=== PATIENT | male | born 1980 | race Caucasian/White ===

== ENCOUNTER 2023-11-30 09:42 | Outpatient (CLI) | payer BC, SELFPAY ==
--- NOTE | 2023-11-30 10:08 | ECG_ITS ---
APPROVED REPORT Exam: Resting ECG HR:102 bpm ECG Measurements Heart Rate 102 AXES IN 129 P 86 QRSd 103 QRS 85 QT 358 T -29 QTc 417 Conclusion SINUS TACHYCARDIA INCOMPLETE RIGHT BUNDLE BRANCH BLOCK [90+ ms QRS DURATION, TERMINAL R IN V1/V2, 40+ ms S IN I/aVL/V4/V5/V6] ST DEVIATION AND MODERATE T-WAVE ABNORMALITY, CONSIDER ANTERIOR ISCHEMIA [-0.1+ mV T-WAVE IN V3/V4] ABNORMAL ECG UNCONFIRMED REPORT Electronically signed by : Kvng Melchor MD 11/30/2023 20:07:03
[2023-11-30 10:42] LABS: Basophils % 0.2 % (0.1-2.0); Eosinophils # 0.2 K/mm3 (0.0-0.4); Eosinophils % 3.1 % (0.1-12.0); Hematocrit 49.3 % (42.0-52.0); Hemoglobin 16.5 g/dL (14.1-18.0); Lymphocytes # 1.5 K/mm3 (0.7-4.5); Lymphocytes % 31.4 % (10-50); Mean Corpuscular HGB Conc 33.6 g/dL (31.8-35.4); Mean Corpuscular Hemoglobin 29.5 pg (27.0-31.2); Mean Corpuscular Volume 87.9 fl (80-94); Mean Platelet Volume 8.1 fl (7.4-10.4); Monocytes # 0.3 K/mm3 (0.1-1.0); Monocytes % 6.2 % (1.7-9.3); Neutrophils # 2.9 K/mm3 (1.8-7.8); Neutrophils % 59.2 % (37.0-80.0); Platelet Count 260 K/mm3 (142-424); Red Blood Count 5.61 M/mm3 (4.60-6.20); Red Cell Distribution Width 13.5 % (11.5-17.5); White Blood Count 4.9 K/mm3 (4.8-10.8)
--- NOTE | 2023-11-30 10:42 | XR_ITS ---
FINAL REPORT CLINICAL HISTORY: Shortness of breath, Dry cough/drainage. Dizziness after coughing. COMPARISON: None FINDINGS: Two views of the chest were obtained. The heart size and pulmonary vascularity are within normal limits. The mediastinum is normal. No acute pulmonary abnormality is identified. There is no pneumothorax. The bony thorax is intact. IMPRESSION: No active cardiopulmonary disease. Reviewed, Interpreted and Dictated by Osvaldo De Santiago III, MD Transcribed by Opal Fernandez Authenticated and [facility]
[2023-11-30 10:45] LABS: Blood Urea Nitrogen 14 mg/dl (9-20); Calcium 8.5 mg/dl (8.4-10.2); Carbon Dioxide 28 mmol/L (22.0-30.0); Chloride 104 mmol/L (98-107); Estimated Glomerular Filt Rate 61 ml/min (>60); GFR (African American) 74 ML/MIN (>60); Glucose 114 mg/dl (74-100); Sodium 139 mmol/L (136-145)
== END 2023-11-30 23:59 ==
PROVIDERS: Visit Provider Orthopaedic Surgery Sports Medicine
DX: Z01.818 Encounter for other preprocedural examination (principal); R73.09 Other abnormal glucose; Z87.898 Personal history of other specified conditions
CPT/HCPCS: 36415; 71046; 80048; 83036; 85025; 93005

== ENCOUNTER 2024-04-25 12:57 | Emergency (ER) | payer BC, SELFPAY ==
[2024-04-25 13:05] VITALS: BP 141/53; PULSE 99; RESP 20; TEMP 36.7; O2SAT 98; BMI 27.2
--- NOTE | 2024-04-25 13:17 | ED_ITS ---
Discharge Plan Disposition Patient Disposition: Home, Self-Care Condition: Good Prescriptions Prescriptions: New sulfamethoxazole-trimethoprim [Bactrim DS] 800-160 mg Tablet 1 tab PO BID Qty: 20 0RF cephalexin 500 mg capsule 500 mg PO QID Qty: 40 0RF mupirocin 2 % ointment 1 applic topical TID 7 Days Qty: 15 0RF No Action escitalopram oxalate 20 mg tablet 20 mg PO DAILY Patient Comments: TAKE 1 TABLET BY MOUTH DAILY lisdexamfetamine [Vyvanse] 70 mg capsule 70 mg PO DAILY Patient Comments: TAKE 1 CAPSULE BY MOUTH ONCE DAILY IN THE MORNING Referrals Follow up/Referrals: Provider,Referral, [Primary Care Provider] - See instructions Activity Restrictions/Add. Instructions Additional Instructions/Restrictions: Keep the wound clean and dry. Watch the wound for signs of worsening infection, such as worsening redness, swelling, drainage, fever. etc. Take tylenol or ibuprofen for pain. Follow up with your regular doctor. Follow up with your surgeon. Try to follow up there within the next 48 hours to let them recheck to wound. We took a culture of the wound drainage. This will take 3 days to complete. It will tell which antibiotics will best treat your infection. GO TO THE ER FOR ANY WORSENING SYMPTOMS OR CONCERNS. Clinical Impressions Clinical Impression: Superficial postoperative wound infection Instructions Patient Instructions: DI for Wound Infection, Cephalexin, Mupirocin Discharge ED Provider: Nestor Huynh [facility] General Stated complaint: pain in arm Mode of Arrival: Ambulatory Source of Information: Patient Limitations: No Limitations Time Seen by Provider: 04/25/24 13:17 Description of Symptoms (Recalled from Triage Doc. by RN): PATIENT REPORTS HAVING RIGHT SHOULDER REPLACEMENT SURGERY APPROX 5 WEEKS AGO AND STATES ONE OF HIS SCARS HAS OPENED UP SOME AND HAS SOME REDNESS AROUND IT HEENT Symptoms (Recalled from RN notes): No Resp Symptoms (Recalled from RN notes): No Skin Symptoms (Recalled from RN notes): Yes MS Symptoms (Recalled from RN notes): No Functional Status (Recalled from RN notes): WNL History of Present Illness Provider Complaint: He states that 5 weeks ago he had right shoulder surgery in [place]. His shoulder has been doing good, but over the past 3 days he has had a small open area develop on the top part of his incision. There has been some clear drainage also. He denies any worsening shoulder pain and fever/chills. Related Data Home Medications Medication Instructions Recorded Confirmed escitalopram oxalate 20 mg tablet 20 mg PO DAILY 04/25/24 04/25/24 lisdexamfetamine 70 mg capsule 70 mg PO DAILY 04/25/24 04/25/24 (Vyvanse) Previous Rx's Medication Instructions Recorded cephalexin 500 mg capsule 500 mg PO QID #40 caps 04/25/24 mupirocin 2 % topical ointment 1 applic topical TID 7 days #15 04/25/24 grams sulfamethoxazole 800 1 tab PO BID #20 tabs 04/25/24 mg-trimethoprim 160 mg tablet (Bactrim DS) Allergies Allergy/AdvReac Type Severity Reaction Status Date / Time No Known Allergies Allergy Verified 04/25/24 13:12 Worker's Comp Is this a Worker's Comp case?: No [facility] Disclaimer: The information contained in this section may have been updated after the patient was seen, as this information can be updated by other users. Surgical History (Updated 04/25/24 @ 13:13 by Nora Ardon RN) History of right shoulder replacement Social History Smoking Status: Never smoker alcohol intake: never current occupational status: employed Travel in the last 8 weeks: None ROS Obtained: Yes All systems reviewed & no additional complaints except as documented Constitutional Constitutional: Denies chills and Denies fever(s) Eyes Eyes: Denies eye discharge ENT Ears, Nose, Mouth, and Throat: Denies dizziness, Denies otalgia and Denies sore throat Cardiovascular Cardiovascular: Denies chest pain Respiratory Respiratory: Denies shortness of breath, Denies chest congestion, Denies cough, Denies stridor and Denies wheezing Gastrointestinal Gastrointestingal: Denies nausea or vomiting Musculoskeletal Musculoskeletal: Reports system reviewed and no additional complaints, except as documented and Denies arthralgias Integumentary/Breasts Skin/Breast: Reports as per HPI and Denies redness Neurologic Neurologic: Denies dizziness and Denies paresthesias Allergic/Immunologic Allergic/Immunologic: Denies wheezing Physical Exam General General appearance: alert and in no apparent distress Head Head exam: atraumatic, normocephalic and normal inspection Eye Eye exam: Present normal appearance, PERRL and EOMI ENT ENT exam: Present normal exam, normal oropharynx, mucous membranes moist, TM's normal bilaterally and normal external ear exam Neck Neck exam: Present normal inspection, full ROM and trachea midline; Absent meningismus or lymphadenopathy Chest Chest inspection: Present normal inspection and symmetric chest wall rise; Absent tenderness Respiratory Respiratory exam: Present normal lung sounds bilaterally; Absent respiratory distress Cardiovascular Cardiovascular exam: Present regular rate and normal rhythm; Absent JVD Abdominal Exam Abdominal exam: Present soft and normal bowel sounds; Absent distention, tenderness or guarding Extremities Exam Extremities exam: Present normal inspection, full ROM and normal capillary refill; Absent calf tenderness Back Exam Back exam: Present normal inspection; Absent tenderness Neurological Exam Neurological exam: Present alert and oriented X3 Psychiatric Psychiatric exam: Present normal affect and normal mood Skin Skin exam: Present other (there is a small open area on the top part of his right shoulder incision. the rest of the incision appears well healed. there is no surrounding redness or edema. there is a small amount of clear drainage from the open area of the wound. ) Lymphatic Lymphatic Findings: no adenopathy Medical Decision Making Medical Records Medical records reviewed: No I reviewed the patient's medical records. [place] Inquiry Pt receiving controlled substance: No Vital Signs: 04/25/24 13:05 Temperature 98.0 F Temperature Source Oral Pulse Rate [Left Brachial] 99 H Respiratory Rate 20 Blood Pressure [Left Arm] 141/53 H Blood Pressure Mean [Left Arm] 82 Blood Pressure Source [Left Arm] Automatic Cuff Blood Pressure Position [Left Arm] Sitting 02 Sat by Pulse Oximetry 98 Oxygen Delivery Method Room Air
[2024-04-25 13:43] VITALS: BP 141/53; PULSE 99; RESP 20; TEMP 36.7; O2SAT 98
== END 2024-04-25 13:47 | disposition home or self-care (01) ==
PROVIDERS: Emergency Provider Nurse Practitioner Family
DX: T81.49XA Infection following a procedure, other surgical site, initial encounter (principal); Z96.611 Presence of right artificial shoulder joint
CPT/HCPCS: 87070; 87077; 87186; 87205; 99204; 99212; G0463

== ENCOUNTER 2024-07-29 08:16 | Emergency (ER) | payer BC, SELFPAY ==
[2024-07-29 08:30] VITALS: BP 121/90; PULSE 91; RESP 20; TEMP 36.8; O2SAT 100; BMI 25.0
--- NOTE | 2024-07-29 09:01 | EXP.UTC ---
Discharge Plan Disposition Patient Disposition: Home, Self-Care Condition: Good Prescriptions Prescriptions: New amoxicillin 500 mg capsule 500 mg PO TID 7 Days Qty: 21 0RF ciprofloxacin-dexamethasone 0.3-0.1 % drops,suspension 4 drp otic (ear) BID 7 Days Qty: 7.5 0RF Rx Instructions: apply drops in left ear as directed No Action escitalopram oxalate 20 mg tablet 20 mg PO DAILY Patient Comments: TAKE 1 TABLET BY MOUTH DAILY lisdexamfetamine [Vyvanse] 70 mg capsule 70 mg PO DAILY Patient Comments: TAKE 1 CAPSULE BY MOUTH DAILY IN THE MORNING Referrals Follow up/Referrals: Provider,Referral, MD [Referring] - See instructions Activity Restrictions/Add. Instructions Additional Instructions/Restrictions: Take medicatin as prescribed Use Ear drops as prescribed Follow up with your Family Doctor if no improvement or any worsening of symptoms Return if needed Straight to ER if any life threatening symptoms Clinical Impressions Clinical Impression: Otitis externa Instructions Patient Instructions: How to Instill Ear Drops, How to Use Ear Drops, DI for Otitis Externa Print Language Print Language: Citizen [place] Discharge ED Provider: Sydney Bright [facility] General Stated complaint: Pain and loss of hearing in L ear Mode of Arrival: Ambulatory Source of Information: Patient Limitations: No Limitations Time Seen by Provider: 07/29/24 09:01 Description of Symptoms (Recalled from Triage Doc. by RN): PATIENT C/O LEFT EAR PAIN WITH DECREASED HEARING THAT STARTED 2 DAYS AGO HEENT Symptoms (Recalled from RN notes): Yes Resp Symptoms (Recalled from RN notes): No Skin Symptoms (Recalled from RN notes): No MS Symptoms (Recalled from RN notes): No Functional Status (Recalled from RN notes): WNL History of Present Illness Provider Complaint: Patient states about 2 days ago he cleaned out his ears and then after that he has been having pain in his left ear, feeling like it is swollen and decreased States today it was still bothering him so he came in to get it checked Related Data Home Medications ?Medication ?Instructions ?Recorded ?Confirmed escitalopram oxalate 20 mg tablet 20 mg PO DAILY 04/25/24 07/29/24 lisdexamfetamine 70 mg capsule 70 mg PO DAILY 07/29/24 07/29/24 (Vyvanse) Previous Rx's ?Medication ?Instructions ?Recorded amoxicillin 500 mg capsule 500 mg PO TID 7 days #21 caps 07/29/24 ciprofloxacin 0.3 %-dexamethasone 4 drp otic (ear) BID 7 days #7.5 mL 07/29/24 0.1 % ear drops,suspension Allergies Allergy/AdvReac Type Severity Reaction Status Date / Time No Known Allergies Allergy Verified 04/25/24 13:12 Worker's Comp Is this a Worker's Comp case?: No [facility] Disclaimer: The information contained in this section may have been updated after the patient was seen, as this information can be updated by other users. Surgical History (Updated 04/25/24 @ 13:13 by Nora Ardon RN) History of right shoulder replacement Social History (Updated 04/25/24 @ 15:39 by Nestor Huynh APRN) Smoking Status: Never smoker alcohol intake: never current occupational status: employed Travel in the last 8 weeks: None ROS Obtained: Yes All systems reviewed & no additional complaints except as documented and Yes Systems reviewed as appropriate & no additional complaints except as documented Constitutional Constitutional: Reports system reviewed and no additional complaints, except as documented and Reports as per HPI ENT Ears, Nose, Mouth, and Throat: Reports system reviewed and no additional complaints, except as documented, Reports as per HPI and Reports otalgia Cardiovascular Cardiovascular: Reports system reviewed and no additional complaints, except as documented and Reports as per HPI Respiratory Respiratory: Reports system reviewed and no additional complaints, except as documented and Reports as per HPI Gastrointestinal Gastrointestingal: Reports system reviewed and no additional complaints, except as documented and as per HPI Physical Exam General General appearance: alert and in no apparent distress ENT ENT exam: Present mucous membranes moist Expanded ENT Exam External ear exam: Present pain with movement (left) and external tenderness (left) TM/Canal exam: Left TM: canal discharge and canal tenderness Respiratory Respiratory exam: Present normal lung sounds bilaterally; Absent respiratory distress or wheezes Cardiovascular Cardiovascular exam: Present regular rate, normal rhythm and normal heart sounds Neurological Exam Neurological exam: Present alert, oriented X3 and normal gait Medical Decision Making Bernard[place] Inquiry Pt receiving controlled substance: No [place] was queried for this patient: No Vital Signs: 07/29/24 08:30 Temperature 98.2 F Temperature Source Oral Pulse Rate [Left Brachial] 91 H Respiratory Rate 20 Blood Pressure [Left Arm] 121/90 Blood Pressure Mean [Left Arm] 100 Blood Pressure Source [Left Arm] Automatic Cuff Blood Pressure Position [Left Arm] Sitting 02 Sat by Pulse Oximetry 100 Oxygen Delivery Method Room Air
[2024-07-29 09:18] VITALS: BP 121/90; PULSE 91; RESP 20; TEMP 36.8; O2SAT 100
== END 2024-07-29 09:20 | disposition home or self-care (01) ==
PROVIDERS: Emergency Provider Nurse Practitioner; PCP Family Medicine
DX: H60.92 Unspecified otitis externa, left ear (principal); H92.02 Otalgia, left ear
CPT/HCPCS: 99212; 99214; G0463

== ENCOUNTER 2024-07-30 19:29 | Emergency (ER) | payer BC, SELFPAY ==
[2024-07-30 19:32] VITALS: BP 135/81; PULSE 92; RESP 18; TEMP 36.8; O2SAT 98; BMI 25.0
--- NOTE | 2024-07-30 19:53 | PC.NURSE ---
at bedside with US
--- NOTE | 2024-07-30 19:59 | ED_ITS ---
Discharge Plan Disposition Patient Disposition: Home, Self-Care Prescriptions Prescriptions: New Eliquis DVT-PE Treat 30D Start 5 mg (74 tabs) tablets,dose pack 5 mg PO BID Qty: 74 2RF No Action escitalopram oxalate 20 mg tablet 20 mg PO DAILY Patient Comments: TAKE 1 TABLET BY MOUTH DAILY lisdexamfetamine [Vyvanse] 70 mg capsule 70 mg PO DAILY Patient Comments: TAKE 1 CAPSULE BY MOUTH DAILY IN THE MORNING amoxicillin 500 mg capsule 500 mg PO TID 7 Days Qty: 21 0RF ciprofloxacin-dexamethasone 0.3-0.1 % drops,suspension 4 drp otic (ear) BID 7 Days Qty: 7.5 0RF Rx Instructions: apply drops in left ear as directed Referrals Follow up/Referrals: Nathaniel Fitzpatrick MD [Primary Care Provider] - See instructions Activity Restrictions/Add. Instructions Additional Instructions/Restrictions: Start apixaban (Eliquis, blood thinner) in the morning of 07/31. 10 mg twice daily for the first 7 days, then 5 mg twice daily for the remainder of time for total treatment 3 months. Call your family doctor to establish care for this visit to the emergency department and schedule follow-up within 48 hours to ensure improvement. If you have any worsening of your condition or any other concerning signs or symptoms, return to the emergency department or your primary care doctor for further evaluation. Clinical Impressions Clinical Impression: Acute deep vein thrombosis (DVT) of right upper extremity Print Language Print Language: Armenian Discharge ED Provider: Jonny Goff General Adult HPI General Chief complaint: Recheck/Abnormal Lab/Rx Stated complaint: ? Blood Clot in Right Arm Time Seen by Provider: 07/30/24 19:34 Mode of Arrival: Ambulatory Source of Information: Patient Limitations: No Limitations Description of Symptoms (Recalled from ER Triage Doc. by RN): Patient presents to ED after having shoulder surgery in February, patient thinks he has a blood clot to his right forearm. Patient reports it shown up 1 week ago. Patient rates pain 3/10, but states it is more annoying than pain. History of Present Illness HPI narrative: Please note that above description of symptoms, in this electronic medical record under categorization of recalled from ER triage doctor by RN are reflective of an initial nursing assessment, however, is not reflective of my full history and physical exam that was personally taken and clarified. Consequentially, this preceding description of symptoms, which may include the patient's categorized chief complaint in the EMR, do not reflect my personal clinical impression, and the ultimate description of history of present illness and patient stated complaints should be deferred to this section of the note. Unless stated otherwise or congruent with this section of the note, additional signs, symptoms, or incongruence should be interpreted as inaccurate with my clinical impression. Related Data Home Medications ?Medication ?Instructions ?Recorded ?Confirmed escitalopram oxalate 20 mg tablet 20 mg PO DAILY 04/25/24 07/29/24 lisdexamfetamine 70 mg capsule 70 mg PO DAILY 07/29/24 07/29/24 (Vyvanse) Previous Rx's ?Medication ?Instructions ?Recorded amoxicillin 500 mg capsule 500 mg PO TID 7 days #21 caps 07/29/24 ciprofloxacin 0.3 %-dexamethasone 4 drp otic (ear) BID 7 days #7.5 mL 07/29/24 0.1 % ear drops,suspension apixaban 5 mg (74 tabs) tablets in 5 mg PO BID #74 tabs 07/30/24 a dose pack (EliquOutlisten DVT-PE Treat 30D Start) Allergies Allergy/AdvReac Type Severity Reaction Status Date / Time No Known Allergies Allergy Verified 04/25/24 13:12 [facility] Disclaimer: The information contained in this section may have been updated after the patient was seen, as this information can be updated by other users. Surgical History (Updated 04/25/24 @ 13:13 by Nora Ardon RN) History of right shoulder replacement Social History (Updated 04/25/24 @ 15:39 by Nestor Huynh APRN) Smoking Status: Never smoker alcohol intake: never current occupational status: employed Travel in the last 8 weeks: None ROS Obtained: Yes All systems reviewed & no additional complaints except as documented Physical Exam General General appearance: alert Head Head exam: atraumatic and normocephalic Eye Eye exam: Present normal appearance, PERRL and EOMI Neck Neck exam: Present normal inspection, full ROM and trachea midline Respiratory Respiratory exam: Present normal lung sounds bilaterally; Absent respiratory distress, wheezes, stridor, accessory muscle use or prolonged expiratory phase Cardiovascular Cardiovascular exam: Present regular rate, normal rhythm and other (Pulses equal symmetric in upper and lower extremities) Abdominal Exam Abdominal exam: Present soft; Absent distention, tenderness or pulsatile mass Extremities Exam Extremities exam: Present other (Per MDM); Absent edema Neurological Exam Neurological exam: Present alert, oriented X3 and CN II-XII intact; Absent motor sensory deficit Skin Skin exam: Present warm and dry; Absent diaphoresis or erythema Medical Decision Making Medical Records Medical records reviewed: Yes I reviewed the patient's medical records. [place] Inquiry Pt receiving controlled substance: No [place] was queried for this patient: No Vital Signs: 07/30/24 19:32 Temperature 98.3 F Temperature Source Oral Pulse Rate [Left Brachial] 92 H Respiratory Rate 18 Blood Pressure [Left Arm] 135/81 Blood Pressure Mean [Left Arm] 99 Blood Pressure Source [Left Arm] Automatic Cuff Blood Pressure Position [Left Arm] Sitting 02 Sat by Pulse Oximetry 98 Oxygen Delivery Method Room Air Orders (Tests/Meds): ED MEDICATIONS Generic Name Dose Route Start Last Admin Trade Name Freq PRN Reason Stop Dose Admin Enoxaparin Sodium 85 mg 07/30/24 20:00 Enoxaparin 100mg/Ml Syringe 1 mg/kg (85 mg) 08/29/24 19:59 SQ Q12H MELVIN ORDERS Category Date Time Status POCUS Point of Care (ER Only) Stat Exams 07/30/24 19:39 Ordered Medical Decision Narrative: Is a 43-year-old male who is otherwise healthy recently status post right shoulder replacement in February 2024 who is presenting with palpable knot in right forearm. Patient states he has been going to physical therapy, has been doing well in terms of rehabilitation from his right upper extremity shoulder replacement. States that today, 07/30, he was feeling his right forearm just distal to the elbow and felt a knot. Is not tender. 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 States that his right upper extremity, right hand, right wrist, etc. have been a little more swollen, red out of baseline due to his shoulder surgery, he has had not had any other worse or appreciable swelling. No trauma to the area, etc. History obtained with patient. On arrival, patient very well-appearing. He is nontachycardic, normotensive, speaking full sentences. No complaints of palpitations, chest pain, etc. On physical exam he also has a palpable cord extending from medial aspect of mid right forearm and antecubital fossa before diving deeper and no longer palpable. Pulses are equal in upper extremities. Right upper extremity is erythematous and does appear congested with brisk capillary refill. Sensation decreased, patient states this is his baseline. Bedside [id number] DVT ultrasound with venous thrombosis extending from radial vein as well as ulnar vein up through antecubital fossa into basilic vein proximally. Does not appear to affect axillary vein. Because of this, patient was given 1 mg/kg of subcutaneous Lovenox. Because patient at baseline without signs or symptoms of clinical decompensation, deemed appropriate for discharge. Results were relayed to patient who voiced understanding and were agreeable to outpatient management and follow up. I discussed my clinical impression with patient and answered all questions. At this time, the evidence for any other entities in the differential is insufficient to warrant any further testing or ED observation. This was explained as well. Advisory was given that persistent or worsening symptoms require further evaluation. I confirmed the understanding of this discussion. Audiology Doctor disclaimer Much of this encounter note is an electronic deicer inspector pneumatic spoken language to printed text. Electronic deicer inspector pneumatic of the spoken language may permit errors. Although I have reviewed the note, some errors may still exist. Procedures Limited Ultrasound Indication:: Limited DVT ultrasound Indication: Limited compression ultrasonography of the right upper extremity was performed to evaluate for non-compressibility of the deep veins in the patient. The ultrasound was performed with the following indications, as noted in the H&P: Recent postop, swelling right upper extremity, palpable cord Identified structures: Right ulnar vein, radial vein, cephalic vein, basilic vein, axillary vein. Findings: Upper extremity: Right UV noncompressible Right RV: Noncompressible Right Cephalic vein: Compressed Right Basilic vein: noncompressibility Right Axillary vein: Good compressibility Impression: Deep venous thrombosis of right upper extremity and right ulnar, right radial veins extending into right basilic vein. Images were saved to permanent archive The study was technically adequate CPT: 50316-19-FR 01531-02-TC 18648-77 (complete bilateral study) This study was performed by me, and I personally interpreted all images/videos. Based on my clinical judgement, these images were adequate and did not necessitate further imaging Critical Care Critical Care Time Critical Care Time: No
[2024-07-30] MEDS: ENOXAPARIN 100MG/ML SYRINGE 85 MG SQ (20:00)
[2024-07-30 20:15] VITALS: BP 135/80; PULSE 82; RESP 18; TEMP 36.8; O2SAT 99
== END 2024-07-30 20:15 | disposition home or self-care (01) ==
PROVIDERS: Emergency Provider Emergency Medicine; PCP Family Medicine
DX: I82.621 Acute embolism and thrombosis of deep veins of right upper extremity (principal); I82.611 Acute embolism and thrombosis of superficial veins of right upper extremity
CPT/HCPCS: 96372; 99284; J1650

== ENCOUNTER 2024-08-06 11:18 | Outpatient (CLI) | payer OTHER, SELFPAY ==
--- NOTE | 2024-08-06 | CA_ITS ---
FINAL REPORT TECHNIQUE: Graded compression, spectral analysis and ultrasound images of the venous system of the right upper extremity were obtained. CLINICAL HISTORY: Post-op palpable chord in right forearm, + DVT eper ER-physician scan07/30/24 COMPARISON: None FINDINGS: There is visible thrombus with noncompressibility consistent with thrombosis in the cephalic vein. The remainder of the venous system is fully compressible and demonstrate no evidence of thrombosis. IMPRESSION: Cephalic vein thrombosis of the right upper extremity. Reviewed, Interpreted and Dictated by Chad Sanz MD Transcribed by Opal Fernandez Authenticated and [facility]
== END 2024-08-06 23:59 | disposition home or self-care (01) ==
LOC: RT 11:19
PROVIDERS: PCP Family Medicine; Visit Provider Orthopaedic Surgery Sports Medicine
DX: M25.511 Pain in right shoulder (principal); I82.621 Acute embolism and thrombosis of deep veins of right upper extremity; Z98.890 Other specified postprocedural states
CPT/HCPCS: 93971

== ENCOUNTER 2024-09-17 11:24 | Outpatient (CLI) | payer BC, SELFPAY ==
[2024-09-18 15:24] LABS: Endomysial IgA Antibody Negative (Negative)
[2024-09-18 16:55] LABS: Deamidated Gliadin Abs, IgA 3 units (0-19); Deamidated Gliadin Abs, IgG 2 units (0-19); Tissue Transglutaminase IgA Ab <2 U/mL (0-3); Tissue Transglutaminase IgG Ab 3 U/mL (0-5)
[2024-09-20 08:21] LABS: Reticulin IgA Antibody Negative titer (Neg:<1:2.5)
== END 2024-09-17 23:59 | disposition home or self-care (01) ==
LOC: LAB 11:25
PROVIDERS: PCP Family Medicine; Visit Provider Internal Medicine
DX: R14.0 Abdominal distension (gaseous) (principal); R19.4 Change in bowel habit
CPT/HCPCS: 36415; 83516; 86255; 86256

== ENCOUNTER 2024-11-07 15:00 | Outpatient (RCR) | payer OTHER, SELFPAY | END 2024-11-07 23:59 | disposition home or self-care (01) | LOC: OT 15:00 | PROVIDERS: Visit Provider Orthopaedic Surgery Sports Medicine | DX: M25.512 Pain in left shoulder (principal); Z47.1 Aftercare following joint replacement surgery | CPT/HCPCS: 97010; 97014; 97110; 97140; 97164; 97166; 97168; G0283 ==

== ENCOUNTER 2025-05-26 12:50 | Outpatient (CLI) | payer BC, SELFPAY ==
--- OUTSIDE RECORDS SUMMARY | 2025-05-26 12:55 | XMS_ITS | Data Portability ---
Author Organization TANNA - Karan altamirano MD, Main Office Address [address] [place] [address], [facility] [address] [place] [address] Care Team Providers Care Automobile Glass Technician Name Role Phone SHAINA ESCOBAR [employer] [phone] Assessment No assessment recorded. Plan of Treatment Reminders Order Date Submit Date Provider Last Modified By Organization Details Last Modified Time Details Appointments None record ed. Lab None record ed. Referral None record ed. Procedures None record ed. Surgeries None record ed. Imaging None record ed. Medication Orders None record ed. Patient TargetsNo targets recorded. Patient Instructions Encounter Date Encounter Id Patient Instructions Last Modified By Organization Details Last Modified Time 05/15/2023 [id number] Numbness and Tingling: Care Instructions [email or web address] Not available 05/15/2023 11:05:34 Reason for Referral None Reported. Results Created Date Observation Date Name Description Value Unit Range Abnormal Flag Note LastModifiedBy Organization Detail LastModifiedTime 05/15/20 23 05/15/2023 elect romyo gram + nerve condu ction study No observ ation record ed. BARCODE Not Available 2022 11:03:18 Result Notes None recorded. Problems No Known Problems Procedures Surgical History Date Name Laterality Status Provider Name and Address Organization Details Recorded Time 05/15/2023 NCV/EMG completed Sanju Hudson MD 05/15/2023 11:05:20 Imaging Results None recorded. Procedure Notes None recorded. Medical Equipment None Reported. Allergies No known drug allergies Medications Name Sig Start Date Stop Date Status Note LastModified by Organization Details LastModified Time prednisone 10 mg tablet TAKE 4 TABLETS BY MOUTH EVERY DAY FOR 5 DAYS WITH FOOD active Not Available Not Available No t Available meloxicam 15 mg tablet TAKE 1 TABLET BY MOUTH EVERY DAY active Not Available Not Available No t Available sulfamethoxa zole 800 mg-trimethop rim 160 mg tablet TAKE 1 TABLET BY MOUTH EVERY 12 HOURS FOR 7 TO 10 DAYS active Not Available Not Available No t Available amoxicillin 875 mg tablet TAKE 1 TABLET BY MOUTH EVERY 12 HOURS FOR 10 DAYS active Not Available Not Available Not Available triamcinolon e acetonide 0.025 % topical cream APPLY A THIN LAYER TO THE GROIN UNTIL CLEAR. active Not Available Not Available No t Available tobramycin 0.3 % eye drops INSTILL 1 TO 2 DROPS INTO AFFECTED EYE EVERY 4 HOURS FOR 7 TO 10 DAYS active Not Available Not Available N ot Available hydrocortiso ne 2.5 % topical cream APPLY TOPICALLY TO AFFECTED AREA(S) 3 TO 4 TIMES A DAY NEEDED active Not Available Not Available No t Available methylpredni solone 4 mg tablets in a dose pack TAKE 1 ROW OF TABLETS BY MOUTH EACH DAY INSTRUCTED ON THE PACKAGE active Not Available Not Available No t Available albuterol sulfate HFA 90 mcg/actuatio n aerosol inhaler INHALE 2 PUFFS BY MOUTH EVERY FOUR HOURS NEEDED active Not Available Not Available No t Available ketoconazole 2 % topical cream APPLY TOPICALLY TO AFFECTED AREA TWICE DAILY FOR 14-28 DAYS active Not Available Not Available N ot Available escitalopram 10 mg tablet TAKE 1 TABLET BY MOUTH EVERY DAY active Not Available Not Available No t Available Vyvanse 70 mg capsule TAKE 1 CAPSULE BY MOUTH IN THE MORNING active Not Available Not Available Not Available Vyvanse 60 mg capsule TAKE 1 CAPSULE BY MOUTH IN THE MORNING active Not Available Not Available Not Available Vitals None Recorded Social History None recorded. Functional Status None recorded. Mental Status None recorded. Family History Nothing Reported. Medical History No medical history recorded. Past Encounters Encounter ID Performer Location Encounter Start Date Encounter Closed Date Diagnosis/Indication Diagnosis SNOMED-CT Code Diagnosis ICD10 Code Diagnosis Note [id number] Karan Hudson MD Main Office [address] [facility], [facility] [address] [place] [address] 05/15/2023 10:20:59 05/15/2023 11:06:09 Paresthesia 73967407 R20.2 Health Concerns Section Related Observation LastModified by Organization Detai ls LastModified Time None Recorded Concern Status LastModified by Organization Details LastModified Time None Recorded Advance Directives Directive None Recorded Payers Insurance Date Sequence Insurance Name Policy Number Policy Lacy Covered Member ID Lacy Member ID Guarantor Name 04/27/2023 MORGAN [employer] Reggie Quinones
--- OUTSIDE RECORDS SUMMARY | 2025-05-26 12:55 | XMS_ITS | Data Portability ---
Author Organization [facility] IAN Parker [facility] CLOS[facility] Address [address] [facility] [place] [address] Assessment No assessment recorded. Plan of Treatment [...] Modified By Organization Details Last Modified Time 12/05/2023 [id number] Addendum: Patient had colonoscopy and EGD 09-10. Adenomatous and hyperplastic polyps removed from the colon. Colon biopsies showed microscopic colitis (lymphocytic). Patient has had diarrhea symptom. Will check celiac panel, start budesonide. Follow up in office in 2-3 moths. bridget Not available 09/12/2024 14:32:02 Reason for Referral None Reported. Results Created Date Observation Date Name Description Value Unit Range Abnormal Flag Note LastModifiedBy Organization Detail LastModifiedTime 12/05/1912/05/2023 BEV C PANEL IgA 125 mg/dL 70-400 normal Not Available [facility] [address] [place] [address], [phone], 12/07/2023 11:42:58 12/05/1912/07/2023 BEV C PANEL gliadin Ab IgA <1.0 U/mL normal Value Inter preta tion ----- ----- ----- ---- <15.0 Antib gama not detec aly > or = 15.0 Antib gama detec aly Not Available [facility] [address] [place] [address], [phone], 12/07/2023 11:42:58 12/05/19 24 12/07/2023 BEV C PANEL gliadin Ab IgG <1.0 U/mL normal Value Inter preta tion ----- ----- ----- ---- <15.0 Antib gama not detec aly > or = 15.0 Antib gama detec aly Not Available [facility] [address] [place] [address], [phone], 12/07/2023 11:42:58 12/05/19 24 12/07/2023 BEV C PANEL ttg, IgA <1.0 U/mL normal Value Inter preta tion ----- ----- ----- ---- <15.0 Antib gama not detec aly > or = 15.0 Antib gama detec aly Not Available [facility] [address] [place] [address], [phone], 12/07/2023 11:42:58 12/05/19 24 12/07/2023 BEV C PANEL endomysial Ab, IgA NEGATI VE negati ve normal Not Available [facility] [address] [place] [address], [phone], 12/07/2023 11:42:58 12/05/19 24 12/05/2023 TSH TSH 0.910 u[IU] /mL 0.270- 4.200 normal Not Available [facility] [address] [place] [address], [phone], 12/05/2023 16:36:11 09/09/20 24 09/09/2024 SURGI RALF surgical SEE BELOW normal Surgi ralf Patho logy Gloria MARTIN NAME: YOLI GRAYSON PATH: [id number] DATE of : 11/25 07 Copy to: Diagn osis: A) Gastr ic biops y: Patch y chron ic gastr itis Negat louis for Helic obact er pylor i organ isms on routi ne stain B) Duode 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 No Giard ia organ isms are ident ified . 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 HISTO RY OF COLON CANCE R FIRST DEGRE E RELAT LOUIS (FATH ER) AND SECON D DEGRE E RELAT [place] (FINCH RNAL GRAND FATHE R) THE PATIE NT HAS HAD DIARR HEA SYMPT OM Z12.1 1, D12.4 , D12.8 A) COLLE CTION : SPECI MEN REMOV AL: [address] D IN FIXAT [place]: [address] COLD ISCHE CALIXTO TIME: 0 MINUT ES TOTAL FIXAT ION TIME: 6 HOURS B) COLLE CTION : SPECI MEN REMOV AL: [address] D IN [place]: [address] COLD ISCHE CALIXTO TIME: 0 MINUT ES TOTAL FIXAT ION TIME: 6 HOURS C) COLLE CTION : SPECI MEN REMOV AL: [address] D IN [place]: [address] COLD ISCHE CALIXTO TIME: 0 MINUT ES TOTAL FIXAT ION TIME: 6 HOURS D) COLLE CTION : SPECI MEN REMOV AL: [address] D IN [place]: [address] COLD ISCHE CALIXTO TIME: 0 MINUT ES TOTAL FIXAT ION TIME: 6 HOURS E) COLLE CTION : SPECI MEN REMOV AL: [address] D IN [place]AT [place]: [address] COLD ISCHE CALIXTO TIME: 0 MINUT ES TOTAL FIXAT ION TIME: 6 HOURS Gross Descr iptio n: A) Recei ajay in forma yoan label ed with the patie nt's name and desig nated que oralia biops y are multi ple fragm ents of pale garcias tissu e rangi ng from 0.2 to 0.5 cm. Entir jennifer submi tted in one casse tte label ed A1. B) Recei ajay in forma yoan label ed with the patie nt's name and desig nated duod enal biops y are five fragm ents of pale garcias tissu e rangi ng from 0.2 to 0.7 cm. Entir jennifer submi tted in one casse tte label ed B1. C) Recei ajay in forma yoan label ed with the patie nt's name and desig nated desc endin g colon polyp is a singl e fragm ent of pale garcias tissu e measu ring 0.4 cm. Entir jennifer submi tted in one casse tte label ed C1. D) Recei ajay in forma yoan label ed with the patie nt's name and desig nated rect al polyp s are multi ple fragm ents of pale garcias tissu e rangi ng from 0.1 to 1.0 cm. Entir jennifer submi tted in one casse tte label ed D1. E) Recei ajay in forma yoan label ed with the patie nt's name and desig nated rand om colon biops y are multi ple fragm ents of pale garcias tissu e rangi ng from 0.1 to 0.9 cm. Entir jennifer submi tted in one casse tte label ed E1. SB 09/09 06:56 PM Micro scopi c Descr iptio n: A micro scopi c exami natio n has been perfo rmed and the resul t(s) are as noted above . CD3 immun ohist ochem ical stain shows posit louis stain ing of incre ased numbe rs of intra epith elial mucos al lymph ocyte s. The stain contr ol worke d as expec aly. ANGELLA WEINER IEL-P MD GRACE Payton d Out Date: 09/11 11:46 Page 1 of 1 Not Available [facility] [address] [place], [phone], 09/11/2024 11:46:48 Result Notes None recorded. Medical Equipment None Reported. Allergies No known drug allergies Medications Name Sig Start Date Stop Date Status Note LastModified by Organization Details LastModified Time dicyclomine 10 mg capsule Take 1 capsule 3 times a day by oral route as needed for 30 days. 2023 active Not Available Not Available Not Avai lable Adderall active Not Available Not Avai lable Not Available Lexapro active Not Available Not Avail able Not Available Suprep Bowel Prep Kit 17.5 gram-3.13 gram-1.6 gram oral solution Take as directed 2023 active Not Available Not Available Not Avai lable budesonide DR-ER 9 mg tablet,delaye d and extended release TAKE 1 TABLET BY MOUTH EVERY DAY 2023 active Not Available Not Available Not Avai lable Vitals Date Recorded Body weight Heart rate Respiratory rate Systolic And Diastolic Provider Name and Address Organization Details Last Updated DateTime 12/05/2023 62409.03 g 102 /min 16 /min 145/79 mm[Hg] Ethel Rosario [facility] 12/05/2023 14:53:17 Social History Question Answer Notes LastModified by Organizat ion Details LastModified Time What Was The Date Of Your Most Recent Tobacco Screening? 12/05/2023 Information not available 12/05/2023 Has Tobacco Cessation Counseling Been Provided? No Information not available 12/05/2023 Sex: Unknown Functional Status Question Answer Note LastModified by Organizat ion Details LastModified Time Do you use any illicit or recreational drugs? No Information not available 12/05/2023 Do you or have you ever used any other forms of tobacco or nicotine? No Information not available 12/05/2023 Mental Status None recorded. Family History Nothing Reported. 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 His last colonoscop y is reported to have been 1.5 years ago. I am going to need to obtain a copy of [facility] for reviewHe has not had an EGD for several years. Will do EGD with his next colonoscop y is due to obtain gastric biopsiesHe should have routine dermatolog ic examinatio n for lesions suspicious for sebaceous carcinoma. He does follow with a dermatolog istShould keep follow up with his urologist also for any screenings related for genitourin sol cancers [id number] KELSEY BULL MD SURGERY SCHEDULE [address] [place] [address] 09/09/2024 12:25:56 09/09/2024 12:26:42 Health Concerns Section Related Observation LastModified by Organization Detai ls LastModified Time None Recorded Concern Status LastModified by Organization Details LastModified Time None Recorded Advance Directives Directive None Recorded Payers Insurance Date Sequence Insurance Name Policy Number Policy Lacy Covered Member ID Lacy Member ID Guarantor Name 09/12/2024 1 [id number] [id number] Reggie Quinones [id number] Reggie Quinones Notes Date Note Type Note Provider Name and Address Organization Details Recorded Time 12/05/2023 text/html Reason for consultation: IBS with constipation The patient is a 43 year old who is being seen today to establish GI care.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 Father had colon cancer who at age 36. His paternal grandfather had colon cancer. Also has aunts and cousins with colon cancer. No other Oliveira associated cancers in the family that the patient is aware. His last colonoscopy was about 1.[address] [facility] with Dr. Dimitri Ibrahim. He was told to repeat in 2 years. Has had several lifetime colonoscopies and reports one polyp in the past.He issues with urinary retention. Has seen urology for this issue in past.Was told may have an incomplete heart block recently on EKG and has a cardiology appointment tomorrow. Also has an upcoming rotator cuff surgery in near future on right shoulder.Has history of constipation as a younger adult. More recent seems to have urgent desire to stool. Currently, feels he is doing well by avoiding trigger foods. He denies abdominal pain, weight loss, GERD, or dysphagia symptoms. KELSEY BULL MD [facility], [facility] [place], [address], [facility] 09/12/2024 14:32:11
[2025-05-26 13:53] LABS: Hematocrit 47.5 % (42.0-52.0); Hemoglobin 16.2 g/dL (14.1-18.0); Immature Granulocytes % 0.8 %; Mean Corpuscular HGB Conc 34.1 g/dL (31.8-35.4); Mean Corpuscular Hemoglobin 28.7 pg (27.0-31.2); Mean Corpuscular Volume 84.1 fl (80-94); Nucleated Red Blood Cells % 0 %; Platelet Count 214 K/mm3 (142-424); Red Blood Count 5.65 M/mm3 (4.60-6.20); Red Cell Distribution Width-SD 36.6 fL; White Blood Count 5.2 K/mm3 (4.8-10.8)
[2025-05-26 14:37] LABS: Alanine Aminotransferase 41 U/L (12-78); Albumin Level 4.9 g/dl (3.5-5.0); Albumin/Globulin Ratio 2.1 (1.1-1.8); Alkaline Phosphatase 96 U/L (38-126); Anion Gap 18.0 mEq/L (5-15); Aspartate Amino Transferase 43 U/L (17-59); Bilirubin,Total 1.1 mg/dl (0.2-1.3); Blood Urea Nitrogen 17 mg/dl (9-20); Calcium 9.3 mg/dl (8.4-10.2); Carbon Dioxide 27 mmol/L (22.0-30.0); Chloride 103 mmol/L (98-107); Creatinine,Serum 1.20 mg/dl (0.66-1.25); Estimated Glomerular Filt Rate 66 ml/min (>60); GFR (African American) 80 ML/MIN (>60); Globulin 2.3 g/dL (1.3-3.2); Glucose 94 mg/dl (74-100); Potassium 5.0 mmoL/L (3.5-5.1); Sodium 143 mmol/L (136-145); Total Protein,Serum 7.2 g/dl (6.3-8.2)
[2025-05-26 15:19] LABS: Vitamin B12 672 pg/mL (239-931)
[2025-05-27 08:32] LABS: Testosterone,Total 572 ng/dL (264-916)
== END 2025-05-26 23:59 | disposition home or self-care (01) ==
LOC: LAB 12:51
PROVIDERS: PCP Family Medicine; Visit Provider Physician Assistant Medical
DX: D48.5 Neoplasm of uncertain behavior of skin (principal); R68.82 Decreased libido; G47.10 Hypersomnia, unspecified; M62.50 Muscle wasting and atrophy, not elsewhere classified, unspecified site; Z15.09 Genetic susceptibility to other malignant neoplasm; D68.51 Activated protein C resistance
CPT/HCPCS: 36415; 80053; 82607; 84146; 84403; 85025